=== PATIENT | male | born 1975 | race African-American/Black ===

== ENCOUNTER 2016-10-10 17:30 | Emergency (ER) | payer SELFPAY ==
[~2016-10-10] VITALS: Ht 182.9 cm; Wt 130.0 kg
[2016-10-10] MEDS ORDERED: LIDOCAINE HCL 1% 20ML VIAL (Pyxis) INJ MC ONE (22:15)
[2016-10-10] MEDS ORDERED: TETANUS, DIPHTHERIA, PERTUSSIS VAC/PF 0.5ML (>7YR OLD) IM ONE (22:15)
[2016-10-10] MEDS ORDERED: BACITRACIN ZINC OINT UDPKT TOP ONE (22:15)
[2016-10-10 23:30] VITALS: BP 122/52
== END 2016-10-10 23:56 | disposition home or self-care (01) ==
LOC: ER 21:55
DX: S51.811A Laceration without foreign body of right forearm, initial encounter (principal); F12.10 Cannabis abuse, uncomplicated; F17.200 Nicotine dependence, unspecified, uncomplicated; W25.XXXA Contact with sharp glass, initial encounter; Y93.89 Activity, other specified; Y92.89 Other specified places as the place of occurrence of the external cause; Y99.8 Other external cause status
CPT/HCPCS: 12002; 90471; 90715; 99283; J3490; X7700; Z7610

== ENCOUNTER 2016-10-27 07:43 | Emergency (ER) | payer SELFPAY ==
[~2016-10-27] VITALS: Ht 182.9 cm; Wt 110.0 kg
[2016-10-27 07:49] VITALS: BP 152/90
== END 2016-10-27 09:37 | disposition home or self-care (01) ==
LOC: ER 09:05
DX: Z48.02 Encounter for removal of sutures (principal)
CPT/HCPCS: 99281; Z7610